=== PATIENT | female | born 2000 | race Two or more races ===

== ENCOUNTER 2025-10-31 19:35 | Emergency (ER) | payer MEDICAID ==
[~2025-10-31] VITALS: Ht 157.5 cm; Wt 70.5 kg
[2025-10-31 20:42] LABS: LEUKOCYTE ESTERASE ,URINE TRACE (Neg); NITRITES, URINE NEGATIVE (Neg); OCCULT BLOOD,URINE NEGATIVE (Neg)
[2025-10-31 20:45] LABS: URINE HCG POSITIVE (NEG)
[2025-10-31 20:56] LABS: UA COLLECTION TYPE CLN CATCH MIDSTREAM
[2025-10-31 21:00] LABS: SQUAMOUS EPITHELIAL CELL,UR MODERATE /LPF (FEW)
--- NOTE | 2025-10-31 22:17 | Physician Documentation ---
History of Present Illness General Chief Complaint: See Chief Complaint Stated Complaint: TEST Time Seen by MD: 20:37 History of Present Illness Initial Comments 25-year-old female two para one presents to the emergency department for certification prior to 1st OB appointment. Let us menstrual period noted three months ago. No abdominal or pelvic complaints at this time. No urinary complaints. She is taking vitamins. Review of Systems All Other Systems at this time: Reviewed and Negative ROS See HPI Physical Exam Physical Exam Vital Signs: RN Vital Signs have been reviewed: Yes, Temperature: 98.1, Heart Rate: 83, Respiratory Rate: 16, BP: 130/71, Pulse Oximetry: 100, Weight: 70.450 Oxygen Flow Rate: 0 General Appearance: alert, WD/WN, no apparent distress Head: normal inspection Face: normal inspection Pupils/EOM/Fundus: PERRLA Respiratory: no respiratory distress Gastrointestinal: non-tender Extremities: normal range of motion Neurologic: oriented x4 Psychiatric: normal mood/affect Skin: normal color Progress Results/Orders Results/Orders Completed Orders - LORETA ANDREW PAC Hcg Serum Qt (10/31/25 20:37) Vital Signs 10/31/25 10/31/25 20:08 22:22 Temp 98.1 98.6 Pulse 83 80 Resp 16 18 B/P (MAP) 130/71 128/70 Pulse Ox 100 99 O2 Flow Rate 0 Laboratory Tests Test 10/31/25 20:13 10/31/25 20:45 Urine Specimen Description Cln catch midstream Urine Color Yellow Urine Clarity Slightly cloudy Urine pH 6.5 Urine Specific [place] <=1.005 Urine Protein Negative Urine Glucose (UA) Negative Urine Ketones Negative Urine Occult Blood Negative Urine Nitrite Negative Urine Bilirubin Negative Urine Urobilinogen 0.2 Urine Leukocyte Esterase Trace H Urine RBC None seen Urine WBC 5-10 H Urine Squamous Epithelial Cells Moderate Urine Bacteria 1+ Urine Culture Indicated Indicated Volume Urine Centrifuged 10 ml Urine HCG, Qualitative Positive Urine Comment HCG Beta Subunit [id number] Microbiology Date/Time Source Procedure Growth Status 10/31/25 21:00 Urine Clean Catch Midstream Urine Culture - Preliminary Culture received. Resulted Medical Decision Making Additional information obtaine: N/A Findings Beta hCG 60,339 consistent with 1st trimester . 5-10 WBCs urine, we will follow up culture. Pregnancies certification provided for patient we will follow up with the OB. She will continue with her vitamins. Safe for discharge and OB follow up. Differential Diagnosis , ectopic , molar Departure Disposition: HOME / SELF CARE / HOMELESS Impression: Primary Impression: Positive test Condition: Stable Additional Instructions: Your B-Hcg is 60,339, please make follow up with OB for care and management. Additionally had the OB doctor follow up on your urine culture. Tonight you had 5-10 WBCs and your urine. Referrals: NO PRIMARY CARE PROVIDER (PCP) Education Educated: Patient Educated regarding: diagnosis, treatment, prognosis, need for follow up Signature Scribe Signature: . Attestation: . LORETA ANDREW PAC Oct 31, 2025 22:17
[2025-10-31 22:22] VITALS: BP 128/70; PULSE 80; RESP 18; TEMP 98.6; O2SAT 99
== END 2025-10-31 22:23 | disposition home or self-care (01) ==
LOC: ER 19:36
DX: Z32.01 Encounter for pregnancy test, result positive (principal)
CPT/HCPCS: 36415; 81001; 81025; 84702; 87088; 99283